=== PATIENT | male | born 1985 | race Caucasian/White ===

== ENCOUNTER → 2023-06-13 | Outpatient (CLI) | payer OTHER | LOC: MHCPAIN 08:08 | DX: M47.892 Other spondylosis, cervical region (principal); M54.12 Radiculopathy, cervical region; M48.02 Spinal stenosis, cervical region | CPT/HCPCS: G0463 ==

== ENCOUNTER → 2023-08-04 | Outpatient (CLI) | payer OTHER ==
[~2023-08-04] MED LIST: Iohexol 300 - 10 ML VIAL ONE; Lidocaine PF 2% (20 MG/ML) 2 ML VIAL ONE
== END ==
LOC: MHCPAIN 14:30
DX: M54.12 Radiculopathy, cervical region (principal)
CPT/HCPCS: J1040; Q9967

== ENCOUNTER → 2023-09-07 | Outpatient (CLI) | payer OTHER | LOC: MHCPAIN 13:37 | DX: M47.812 Spondylosis without myelopathy or radiculopathy, cervical region (principal); M79.2 Neuralgia and neuritis, unspecified | CPT/HCPCS: G0463 ==